=== PATIENT | male | born 1980 | race Caucasian/White ===

== ENCOUNTER 2018-09-17 21:46 | Inpatient (IN) | payer OTHER ==
[~2018-09-17] VITALS: Ht 177.8 cm; Wt 82.1 kg
--- NOTE | ~2018-09-17 | CON ---
[facility] [address] [place] [address] CONSULTATION Name: PHILLIP PINEDA Room: [address] IN .R.#: [id number] Admission: 09/18/18 Attend Phys: Oziel Pastor MD Discharge: Date of : 82 Report #: [id number] THIS REPORT FOR: //name// CC: Oziel Pastor [facility] DATE OF SERVICE: 09/20/2018 UROLOGY CONSULTATION REFERRING PHYSICIAN: Oziel Pastor M.D. REASON FOR CONSULTATION: Hematuria, urinary retention, traumatic Iglesias removal. HISTORY OF PRESENT ILLNESS: This is a 38-year-old male admitted to the ICU with severe alcohol withdrawal. Iglesias catheter was placed around the time of admission. He reportedly removed this with the balloon inflated last night. He has subsequently been unable to void volitional, but has had some incontinence. Bladder scan was reportedly checked and revealed an over 700 mL residual. Urology was consulted regarding this. The patient denies prior bladder trouble. He is a poor historian at this point due to altered mental status, likely related to his alcohol withdrawal. He is also receiving sedatives. He denies abdominal or flank pain. Denies any history of urinary tract surgery. History is otherwise obtained from the chart. PAST MEDICAL HISTORY: Reportedly includes alcohol abuse, hypertension, and anxiety. FAMILY HISTORY: Reportedly without pertinent findings. Again, he is unable to provide this or social history. Chart indicates he smokes tobacco daily and of course, he has a history of alcohol abuse. REVIEW OF SYSTEMS: Not obtainable from the patient with any reliability. Chart indicates that he has denied fever, chills, blurry vision, chest pain, palpitation, shortness of breath, cough, nausea, or vomiting. PHYSICAL EXAMINATION: VITAL SIGNS: Temperature 37.1, pulse 75, respirations 24, and blood pressure 132/91. GENERAL: This is a 38-year-old male in no acute distress. He is somnolent, but arousable and answers a few yes/no questions. HEENT: Normocephalic, atraumatic. Extraocular movements are intact. Oropharynx is clear. NECK: Supple. No JVD. LUNGS: Respiratory effort and excursion are normal. CARDIAC: Rhythm is regular. Chest wall is nontender[place] [address] CONSULTATION Name: PHILLIP PINEDA Room: [address]#: [id number] Admission: 09/18/18 Attend Phys: Oziel Pastor MD Discharge: Date of : 82 Report #: [id number] palpable. EXTREMITIES: Warm. His extremities are in soft restraints. He moves all extremities. No peripheral edema. Radial pulses are palpable. ABDOMEN: Soft. There is mild tenderness and distention suprapubically consistent with urinary retention. Flanks are nontender. GENITOURINARY: Reveals normal penis and scrotum. Testes are nontender with no palpable masses. There is a small amount of dried blood at the urethral meatus. LABORATORY STUDIES: Include sodium 142, potassium 3.9, chloride 105, CO2 of 31, BUN 7, creatinine 0.8, glucose 96. Hemoglobin 13.1, white count 10.3, and platelet count 160,000. Urinalysis on admission was remarkable only for trace protein. I discussed the clinical situation with him and recommended Iglesias catheter replacement. I explained the reasoning for this and the importance of not pulling his catheter. I discussed the possibility of urethral injury with stricture development and the possible need for surgical manipulation. The genitalia were prepped and draped sterilely. I passed an 18-Qatari Iglesias catheter easily into the bladder with return of approximately 700 mL of bloody urine with a few tiny clots. Exam after this reveals resolution of the distention and tenderness in his suprapubic area. IMPRESSION: Urinary retention and gross hematuria secondary to traumatic catheter removal. An 18-Qatari Iglesias catheter replaced. Recommend leaving this in place for approximately 1 week and explained the reasoning to the patient. This will allow for the best chance of urethral healing. We will follow along and set up a voiding trial in approximately 1 week depending on his overall progress. By: [id number] Cadena MD /nt
[2018-09-17 21:56] VITALS: BP 145/99
[2018-09-17 22:25] LABS: HEMATOCRIT 39.3 % (42.0-52.0); HEMOGLOBIN 13.8 gm/dL (14.0-18.0); MCH 34.1 pg (26.0-34.0); MCHC 35.2 g/dL (28.0-37.0); MCV 96.9 fL (80.0-100.0); MPV 8.6 fl. (7.2-11.1); NUCLEATED RBCS 0 /100WBC; PLATELET COUNT* 142 thou/uL (150-400); RBC 4.06 mil/uL (4.50-6.00); RDW-CV 13.5 % (10.5-14.5); WBC 7.7 thou/uL (4.0-11.0)
[2018-09-17] MEDS ORDERED: COZAAR 25 MG TA25 M2 PO (22:25)
[2018-09-17] MEDS ORDERED: LOPRESSOR25 PO (22:27)
[2018-09-17] MEDS ORDERED: CELEXA40 MG PO (22:29)
[2018-09-17 22:33] LABS: POTASSIUM 2.7 mmol/L (3.5-5.1)
[2018-09-17 22:37] LABS: TOTAL BILIRUBIN 0.9 mg/dL (<0.1-1.0); TOTAL PROTEIN 7.7 g/dL (6.4-8.2)
[2018-09-17 22:51] LABS: ABSOLUTE BASOPHILS 0.2 thou/uL (0.0-0.2); ABSOLUTE MONOCYTES 1.8 thou/uL (0.0-1.2); ABSOLUTE NEUTROPHILS 3.8 thou/uL (1.6-8.1); PLATELET ESTIMATE DECREASED
[2018-09-17 23:21] LABS: URINE BILIRUBIN NEGATIVE (Negative); URINE BLOOD NEGATIVE (Negative); URINE CLARITY CLEAR; URINE COLOR YELLOW; URINE GLUCOSE-RANDOM NEGATIVE (Negative); URINE KETONES NEGATIVE (Negative); URINE LEUKOCYTES-REFLEX NEGATIVE (Negative); URINE NITRITE-REFLEX NEGATIVE (Negative); URINE PROTEIN TRACE (Negative)
[2018-09-17 23:29] LABS: AMP/METHAMP Negative (Negative); BARBITURATES Negative (Negative); BENZODIAZEPINES Negative (Negative); COCAINE Negative (Negative); METHADONE Negative (Negative); OPIATES Negative (Negative); PCP Negative (Negative); THC Negative (Negative)
[2018-09-18 01:09] VITALS: BP 125/88
[2018-09-18 01:30] VITALS: BP 131/89
[2018-09-18 02:35] LABS: INR 1.1; PROTIME 10.8 Seconds (9.20-11.50)
[2018-09-18 04:00] VITALS: BP 129/77
[2018-09-18 05:19] LABS: CALCIUM 9.1 mg/dL (8.5-10.1); PHOSPHORUS* 3.1 mg/dL (2.5-4.9)
[2018-09-18 08:00] VITALS: BP 126/84
--- NOTE | 2018-09-18 10:51 | EKG ---
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
[2018-09-18 12:01] VITALS: BP 130/90
[2018-09-18 12:40] LABS: POTASSIUM 3.7 mmol/L (3.5-5.1)
[2018-09-18 15:52] VITALS: BP 140/91
[2018-09-19] VITALS (42 sets, daily range): BP systolic 95–159; BP diastolic 57–119
[2018-09-19 05:14] LABS: ABSOLUTE BASOPHILS 0.1 thou/uL (0.0-0.2); ABSOLUTE EOSINOPHILS 0.1 thou/uL (0.0-0.7); ABSOLUTE LYMPHOCYTES 1.3 thou/uL (0.8-5.3); ABSOLUTE MONOCYTES 1.1 thou/uL (0.0-1.2); ABSOLUTE NEUTROPHILS 5.9 thou/uL (1.6-8.1); BASOPHILS 1.1 %; EOSINOPHILS 1.3 %; HEMATOCRIT 38.8 % (42.0-52.0); HEMOGLOBIN 13.2 gm/dL (14.0-18.0); LYMPHOCYTES 15.4 %; MCH 33.4 pg (26.0-34.0); MCV 98.3 fL (80.0-100.0); MONOCYTES 12.9 %; MPV 9.4 fl. (7.2-11.1); NUCLEATED RBCS 0 /100WBC; PLATELET COUNT* 149 thou/uL (150-400); POLYS 69.3 %; RBC 3.95 mil/uL (4.50-6.00); RDW-CV 13.7 % (10.5-14.5); WBC 8.4 thou/uL (4.0-11.0)
[2018-09-19 05:36] LABS: CALCIUM 8.5 mg/dL (8.5-10.1); CREATININE 0.9 mg/dL (0.6-1.3); POTASSIUM 3.2 mmol/L (3.5-5.1)
[2018-09-20] VITALS (46 sets, daily range): BP systolic 109–148; BP diastolic 73–93
[2018-09-20 03:38] LABS: ABSOLUTE BASOPHILS 0.1 thou/uL (0.0-0.2); ABSOLUTE EOSINOPHILS 0.1 thou/uL (0.0-0.7); ABSOLUTE MONOCYTES 1.4 thou/uL (0.0-1.2); ABSOLUTE NEUTROPHILS 7.8 thou/uL (1.6-8.1); BASOPHILS 0.8 %; EOSINOPHILS 1.1 %; HEMATOCRIT 39.1 % (42.0-52.0); HEMOGLOBIN 13.1 gm/dL (14.0-18.0); LYMPHOCYTES 9.6 %; MCH 33.2 pg (26.0-34.0); MCHC 33.5 g/dL (28.0-37.0); MCV 99.2 fL (80.0-100.0); MONOCYTES 13.3 %; MPV 8.4 fl. (7.2-11.1); NUCLEATED RBCS 0 /100WBC; PLATELET COUNT* 160 thou/uL (150-400); POLYS 75.2 %; RBC 3.94 mil/uL (4.50-6.00); RDW-CV 13.9 % (10.5-14.5); WBC 10.3 thou/uL (4.0-11.0)
[2018-09-20 03:51] LABS: ALBUMIN 3.4 g/dL (3.4-5.0); CALCIUM 8.4 mg/dL (8.5-10.1); CREATININE 0.8 mg/dL (0.6-1.3); MAGNESIUM 1.5 mg/dL (1.8-2.4); PHOSPHORUS* 2.2 mg/dL (2.5-4.9); POTASSIUM 3.9 mmol/L (3.5-5.1); TOTAL BILIRUBIN 0.9 mg/dL (<0.1-1.0)
[2018-09-21] VITALS (20 sets, daily range): BP systolic 119–160; BP diastolic 86–108
[2018-09-21 03:44] LABS: ABSOLUTE BASOPHILS 0.1 thou/uL (0.0-0.2); ABSOLUTE EOSINOPHILS 0.2 thou/uL (0.0-0.7); ABSOLUTE LYMPHOCYTES 1.7 thou/uL (0.8-5.3); ABSOLUTE MONOCYTES 1.4 thou/uL (0.0-1.2); ABSOLUTE NEUTROPHILS 4.4 thou/uL (1.6-8.1); BASOPHILS 0.8 %; EOSINOPHILS 2.7 %; HEMATOCRIT 36.9 % (42.0-52.0); HEMOGLOBIN 12.4 gm/dL (14.0-18.0); LYMPHOCYTES 21.9 %; MCH 33.2 pg (26.0-34.0); MCHC 33.6 g/dL (28.0-37.0); MCV 98.8 fL (80.0-100.0); MONOCYTES 17.6 %; MPV 8.4 fl. (7.2-11.1); NUCLEATED RBCS 0 /100WBC; PLATELET COUNT* 148 thou/uL (150-400); RBC 3.74 mil/uL (4.50-6.00); RDW-CV 13.9 % (10.5-14.5); WBC 7.7 thou/uL (4.0-11.0)
[2018-09-21 04:08] LABS: CALCIUM 8.5 mg/dL (8.5-10.1); CREATININE 0.8 mg/dL (0.6-1.3); POTASSIUM 3.2 mmol/L (3.5-5.1); TOTAL BILIRUBIN 0.7 mg/dL (<0.1-1.0); TOTAL PROTEIN 6.5 g/dL (6.4-8.2)
[2018-09-21 13:54] LABS: MAGNESIUM 1.7 mg/dL (1.8-2.4); POTASSIUM 4.7 mmol/L (3.5-5.1)
[2018-09-22] VITALS (20 sets, daily range): BP systolic 114–153; BP diastolic 78–102
[2018-09-22 04:31] LABS: HEMATOCRIT 36.9 % (42.0-52.0); HEMOGLOBIN 12.5 gm/dL (14.0-18.0); MCH 33.5 pg (26.0-34.0); MCV 98.8 fL (80.0-100.0); MPV 8.7 fl. (7.2-11.1); NUCLEATED RBCS 0 /100WBC; PLATELET COUNT* 192 thou/uL (150-400); RBC 3.73 mil/uL (4.50-6.00); RDW-CV 13.6 % (10.5-14.5); WBC 7.1 thou/uL (4.0-11.0)
[2018-09-22 04:40] LABS: ALBUMIN 3.1 g/dL (3.4-5.0); CALCIUM 8.9 mg/dL (8.5-10.1); CREATININE 0.6 mg/dL (0.6-1.3); TOTAL BILIRUBIN 0.5 mg/dL (<0.1-1.0); TOTAL PROTEIN 6.9 g/dL (6.4-8.2)
[2018-09-22 05:01] LABS: POTASSIUM 3.4 mmol/L (3.5-5.1)
[2018-09-22 06:15] LABS: ABSOLUTE BASOPHILS 0.1 thou/uL (0.0-0.2); ABSOLUTE EOSINOPHILS 0.1 thou/uL (0.0-0.7); ABSOLUTE LYMPHOCYTES 1.4 thou/uL (0.8-5.3); ABSOLUTE MONOCYTES 1.3 thou/uL (0.0-1.2); ATYPICAL LYMPHS 1 %
[2018-09-22 06:17] LABS: PLATELET ESTIMATE ADEQUATE
[2018-09-22 06:18] LABS: ROULEAUX OCCASIONAL
[2018-09-23] VITALS (20 sets, daily range): BP systolic 96–160; BP diastolic 54–113
[2018-09-23 03:43] LABS: ABSOLUTE BASOPHILS 0.1 thou/uL (0.0-0.2); ABSOLUTE EOSINOPHILS 0.1 thou/uL (0.0-0.7); ABSOLUTE LYMPHOCYTES 1.4 thou/uL (0.8-5.3); ABSOLUTE MONOCYTES 1.6 thou/uL (0.0-1.2); BASOPHILS 1.3 %; EOSINOPHILS 0.8 %; HEMATOCRIT 39.1 % (42.0-52.0); HEMOGLOBIN 13.1 gm/dL (14.0-18.0); LYMPHOCYTES 19.9 %; MCH 33.3 pg (26.0-34.0); MCHC 33.5 g/dL (28.0-37.0); MCV 99.3 fL (80.0-100.0); MONOCYTES 22.2 %; MPV 8.4 fl. (7.2-11.1); NUCLEATED RBCS 0 /100WBC; PLATELET COUNT* 248 thou/uL (150-400); POLYS 55.8 %; RBC 3.94 mil/uL (4.50-6.00); RDW-CV 13.4 % (10.5-14.5); WBC 7.2 thou/uL (4.0-11.0)
[2018-09-23 04:02] LABS: ALBUMIN 3.3 g/dL (3.4-5.0); CALCIUM 9.2 mg/dL (8.5-10.1); CREATININE 0.8 mg/dL (0.6-1.3); POTASSIUM 3.8 mmol/L (3.5-5.1); TOTAL BILIRUBIN 0.5 mg/dL (<0.1-1.0); TOTAL PROTEIN 7.3 g/dL (6.4-8.2)
[2018-09-24] VITALS (11 sets, daily range): BP systolic 108–148; BP diastolic 70–105
[2018-09-25 00:01] VITALS: BP 119/82
[2018-09-25 03:47] VITALS: BP 114/81
[2018-09-25 05:04] LABS: ABSOLUTE BASOPHILS 0.1 thou/uL (0.0-0.2); ABSOLUTE EOSINOPHILS 0.1 thou/uL (0.0-0.7); ABSOLUTE LYMPHOCYTES 0.8 thou/uL (0.8-5.3); ABSOLUTE MONOCYTES 1.6 thou/uL (0.0-1.2); ABSOLUTE NEUTROPHILS 9.4 thou/uL (1.6-8.1); BASOPHILS 0.9 %; EOSINOPHILS 0.5 %; HEMATOCRIT 38.1 % (42.0-52.0); HEMOGLOBIN 12.8 gm/dL (14.0-18.0); LYMPHOCYTES 6.5 %; MCHC 33.7 g/dL (28.0-37.0); MCV 98.1 fL (80.0-100.0); MONOCYTES 13.2 %; MPV 8.2 fl. (7.2-11.1); NUCLEATED RBCS 0 /100WBC; PLATELET COUNT* 258 thou/uL (150-400); POLYS 78.9 %; RBC 3.88 mil/uL (4.50-6.00); RDW-CV 13.8 % (10.5-14.5); WBC 11.9 thou/uL (4.0-11.0)
[2018-09-25 05:15] LABS: ALBUMIN 3.2 g/dL (3.4-5.0); CALCIUM 9.3 mg/dL (8.5-10.1); POTASSIUM 3.6 mmol/L (3.5-5.1); TOTAL BILIRUBIN 0.4 mg/dL (<0.1-1.0); TOTAL PROTEIN 7.1 g/dL (6.4-8.2)
[2018-09-25 08:32] VITALS: BP 104/65
[2018-09-25] MEDS ORDERED: FLOMAX0.4 MG PO (08:39)
[2018-09-25 08:40] VITALS: BP 104/65
[2018-09-25] MEDS ORDERED: FOLIC ACID1 MG PO (08:40)
[2018-09-25] MEDS ORDERED: KPN1 EACH PO (09:49)
[2018-09-25] MEDS ORDERED: VITAMIN B-1100 M1 PO (09:50)
== END 2018-09-25 10:45 | disposition home or self-care (01) | DRG 897 ==
LOC: M.ERS 21:46 → M.ICU 09-18 00:11 → M.TBA-ER 09-18 00:11 → M.2W 09-18 00:11 → M.ICU 09-19 00:58 → M.2W 09-20 12:48 → M.ICU 09-20 13:02
PROVIDERS: Emergency Medicine; ADMIT Internal Medicine
DX: F10.231 Alcohol dependence with withdrawal delirium (principal); R44.3 Hallucinations, unspecified; I10 Essential (primary) hypertension; E87.6 Hypokalemia; E83.42 Hypomagnesemia; R33.9 Retention of urine, unspecified; R31.0 Gross hematuria; F41.9 Anxiety disorder, unspecified; F17.210 Nicotine dependence, cigarettes, uncomplicated; Z79.899 Other long term (current) drug therapy